=== PATIENT | female | born 1955 | race Caucasian/White ===

== ENCOUNTER 2023-12-01 12:43 | Inpatient (IN) | payer MEDICARE, MEDICAID ==
[~2023-12-01] VITALS: Ht 160 cm; Wt 52.0 kg
[2023-12-01] VITALS (9 sets, daily range): BP systolic 106; BP diastolic 62; PULSE 97–106; RESP 18–22; TEMP 97.8; O2SAT 92–97
[2023-12-01 13:23] LABS: Basophils # (auto) 0 10 ^3/uL (0-0.2); Basophils % (auto) 0.3 % (0.0-2.0); Eosinophils # (auto) 0 10 ^3/uL (0-0.8); Eosinophils % (auto) 0.5 % (0.0-7.0); Hematocrit 40.9 % (36.0-46.0); Hemoglobin 13.4 g/dL (12.2-16.2); Lymphocytes % (auto) 24.5 % (10.0-50.0); Mean Corpuscular Hemoglobin 29.8 pg (28.0-32.0); Mean Corpuscular Hgb Conc. 32.8 g/dL (32.0-36.0); Mean Corpuscular Volume 90.7 fL (80.0-100.0); Monocytes # (auto) 0.6 10 ^3/uL (0-1.3); Monocytes % (auto) 13.1 % (0.0-12.0); Neutrophils # (auto) 2.6 10 ^3/uL (1.6-8.6); Neutrophils % (auto) 61.6 % (37.0-80.0); Red Blood Cells 4.51 10^6/uL (4.0-5.20); Red Cell Distribution Width 14.9 % (11.8-14.3); White Blood Cell 4.2 10^3/uL (4.4-10.8)
[2023-12-01] MEDS: methylPREDNISolone SOD SUCC 125 MG/2 ML VL IV ONE (13:30)
[2023-12-01] MEDS: ALBUTEROL SULF 2.5 MG/0.5ML(0.5%) NEB SOLN HHN ONE (13:38)
[2023-12-01] MEDS: IPRATROPIUM BROM 0.5 MG/2.5ML INH SOL HHN ONE (13:38)
[2023-12-01 13:42] LABS: Base Excess 4.2 mmol/L (-2.0-2.0)
[2023-12-01 13:45] LABS: Alanine Aminotransferase 21 U/L (7-40); Albumin 4.8 g/dL (3.2-4.8); Alkaline Phosphatase 76 U/L (46-116); Anion Gap 4 (5-15); Aspartate Aminotransferase 27 U/L (13-40); BUN/Creatinine Ratio 16.9 (10.0-20.0); Bilirubin, Total 0.4 mg/dL (0.2-1.0); Blood Urea Nitrogen 10 mg/dL (9-23); Calcium 9.3 mg/dL (8.5-10.1); Carbon Dioxide 36 mmol/L (20-30); Chloride 99 mmol/L (98-107); Glucose 114 mg/dL (74-106); Sodium 139 mmol/L (136-145); Total Protein 7.1 g/dL (5.7-8.2)
[2023-12-01] MEDS: HYDROcodone-ACET 5/325MG TAB PO ONE (14:17)
[2023-12-01] MEDS ORDERED: ROPI1TAB78 PO (16:25)
[2023-12-01] MEDS ORDERED: LOSA-534 PO (16:25)
[2023-12-01] MEDS ORDERED: ATOR40TA52 PO (16:25)
[2023-12-01] MEDS ORDERED: ALBU108A5 INH (16:25)
[2023-12-01] MEDS ORDERED: OXYB5TAB14 PO (16:25)
[2023-12-01] MEDS ORDERED: FLUT1AER3 INH (16:25)
[2023-12-01] MEDS ORDERED: MOME1AER8 INH (16:25)
[2023-12-01] MEDS ORDERED: IBUP-1455 PO (16:25)
[2023-12-01] MEDS ORDERED: ACETAMINOPHEN 325 MG TAB PO PRN (16:30)
[2023-12-01] MEDS: SODIUM CHLORIDE 0.9% 1,000 ML IV SCH (16:52)
[2023-12-01] MEDS: cefTRIAXone 1GM/50ML D5W 50 ML IV ONE (17:49)
[2023-12-01] MEDS: ALBUTEROL SULF 2.5 MG/0.5ML(0.5%) NEB SOLN NEB SCH (18:23)
[2023-12-01] MEDS: IPRATROPIUM BROM 0.5 MG/2.5ML INH SOL NEB SCH (18:23)
[2023-12-01] MEDS: AZITHROMYCIN 500MG/ 250ML 250 ML IV ONE (19:39)
[2023-12-01 21:42] LABS: Urine Bacteria FEW /hpf (None Seen); Urine Blood Negative /uL (Negative); Urine Clarity Clear (Clear); Urine Color Colorless (Yellow); Urine Protein, UAD Negative (Negative); Urine Specific Gravity 1.004 (1.001-1.035); Urine Urobilinogen Normal (Negative); Urine WBC 4 /hpf (0 - 5)
[2023-12-01] MEDS: ROPINIROLE HYDROCHLORIDE 1 MG PO SCH (22:00)
[2023-12-01] MEDS: OXYBUTYNIN CHL 5 MG TAB PO SCH (22:58)
[2023-12-01] MEDS: methylPREDNISolone SOD SUCC 40 MG/ML VL IV SCH (22:58)
[2023-12-02] VITALS (18 sets, daily range): BP systolic 102–130; BP diastolic 57–75; PULSE 59–108; RESP 15–20; TEMP 97.2–98.1; O2SAT 93–100
[2023-12-02 06:16] LABS: Basophils # (auto) 0 10 ^3/uL (0-0.2); Basophils % (auto) 0.2 % (0.0-2.0); Eosinophils # (auto) 0 10 ^3/uL (0-0.8); Hematocrit 36.3 % (36.0-46.0); Hemoglobin 12.1 g/dL (12.2-16.2); Lymphocytes # (auto) 0.5 10 ^3/uL (0.4-5.4); Lymphocytes % (auto) 14.5 % (10.0-50.0); Mean Corpuscular Hemoglobin 30.2 pg (28.0-32.0); Mean Corpuscular Hgb Conc. 33.4 g/dL (32.0-36.0); Mean Corpuscular Volume 90.3 fL (80.0-100.0); Monocytes # (auto) 0.3 10 ^3/uL (0-1.3); Monocytes % (auto) 7.4 % (0.0-12.0); Neutrophils # (auto) 2.7 10 ^3/uL (1.6-8.6); Neutrophils % (auto) 77.9 % (37.0-80.0); Red Blood Cells 4.02 10^6/uL (4.0-5.20); Red Cell Distribution Width 14.4 % (11.8-14.3); White Blood Cell 3.5 10^3/uL (4.4-10.8)
[2023-12-02 06:32] LABS: Alanine Aminotransferase 11 U/L (7-40); Albumin 4.4 g/dL (3.2-4.8); Alkaline Phosphatase 64 U/L (46-116); Anion Gap 7 (5-15); Aspartate Aminotransferase 22 U/L (13-40); BUN/Creatinine Ratio 17.9 (10.0-20.0); Bilirubin, Total 0.3 mg/dL (0.2-1.0); Blood Urea Nitrogen 10 mg/dL (9-23); Calcium 9.3 mg/dL (8.5-10.1); Carbon Dioxide 31 mmol/L (20-30); Chloride 100 mmol/L (98-107); Glucose 102 mg/dL (74-106); Potassium 3.9 mmol/L (3.5-5.1); Sodium 138 mmol/L (136-145); Total Protein 6.9 g/dL (5.7-8.2)
[2023-12-02] MEDS: cefTRIAXone 1GM/50ML D5W 50 ML IV SCH (10:37)
[2023-12-02] MEDS: AZITHROMYCIN 500MG/ 250ML 250 ML IV SCH (10:38)
[2023-12-02] MEDS: ENOXAPARIN SOD 30 MG/0.3 ML SYRINGE SC SCH (10:40)
[2023-12-02] MEDS: LOSARTAN POTASSIUM 50 MG TAB PO SCH (10:40)
[2023-12-02] MEDS: IPRATROPIUM BROM 0.5 MG/2.5ML INH SOL NEB PRN (10:50)
[2023-12-02] MEDS: ALBUTEROL SULF 2.5 MG/0.5ML(0.5%) NEB SOLN NEB PRN (10:51)
[2023-12-02] MEDS ORDERED: OMEP-448 PO (11:24)
[2023-12-02] MEDS: IPRATROPIUM BROM 0.5 MG/2.5ML INH SOL NEB SCH (14:39)
[2023-12-02] MEDS: ALBUTEROL SULF 2.5 MG/0.5ML(0.5%) NEB SOLN NEB SCH (14:39)
[2023-12-02] MEDS: ATORVASTATIN 20 MG TAB PO SCH (21:32)
[2023-12-03] VITALS (16 sets, daily range): BP systolic 99–142; BP diastolic 54–98; PULSE 72–109; RESP 14–20; TEMP 97.3–98.3; O2SAT 94–99
[2023-12-03 06:41] LABS: Basophils # (auto) 0 10 ^3/uL (0-0.2); Basophils % (auto) 0.3 % (0.0-2.0); Eosinophils # (auto) 0 10 ^3/uL (0-0.8); Hematocrit 35.8 % (36.0-46.0); Hemoglobin 11.8 g/dL (12.2-16.2); Lymphocytes # (auto) 0.9 10 ^3/uL (0.4-5.4); Lymphocytes % (auto) 17.1 % (10.0-50.0); Mean Corpuscular Hemoglobin 29.8 pg (28.0-32.0); Mean Corpuscular Hgb Conc. 32.9 g/dL (32.0-36.0); Mean Corpuscular Volume 90.5 fL (80.0-100.0); Monocytes # (auto) 0.4 10 ^3/uL (0-1.3); Monocytes % (auto) 8.5 % (0.0-12.0); Neutrophils # (auto) 3.9 10 ^3/uL (1.6-8.6); Neutrophils % (auto) 74.1 % (37.0-80.0); Red Blood Cells 3.96 10^6/uL (4.0-5.20); Red Cell Distribution Width 15.3 % (11.8-14.3); White Blood Cell 5.2 10^3/uL (4.4-10.8)
[2023-12-03 06:54] LABS: Chloride 104 mmol/L (98-107); Potassium 4.4 mmol/L (3.5-5.1); Sodium 142 mmol/L (136-145)
[2023-12-03 06:55] LABS: Anion Gap 2 (5-15); Carbon Dioxide 36 mmol/L (20-30)
[2023-12-03 07:00] LABS: Blood Urea Nitrogen 11 mg/dL (9-23); Glucose 105 mg/dL (74-106)
[2023-12-03] MEDS ORDERED: IBUPROFEN 800 MG TAB PO PRN (09:45)
[2023-12-03] MEDS: POTASSIUM CHL 10 Meq TABLET PO ONE (10:04)
[2023-12-03] MEDS: FUROSEMIDE 20 MG/2 ML VIAL IV ONE (10:05)
[2023-12-03] MEDS: methylPREDNISolone SOD SUCC 40 MG/ML VL IV SCH (10:06)
[2023-12-03] MEDS: PANTOPRAZOLE 40 MG TAB PO SCH (10:07)
[2023-12-03] MEDS: AZITHROMYCIN 250 MG TAB PO SCH (10:07)
[2023-12-04] VITALS (11 sets, daily range): BP systolic 135–165; BP diastolic 73–90; PULSE 81–100; RESP 14–18; TEMP 97.5–98.9; O2SAT 95–99
[2023-12-04] MEDS: LABETALOL HCL 5 MG/ML 4ML SYRINGE IV ONE (04:54)
[2023-12-04] MEDS ORDERED: IPR002IS HHN (09:11)
[2023-12-04] MEDS ORDERED: AZIT500T PO (09:11)
[2023-12-04] MEDS ORDERED: PRED20TA2 PO (09:11)
[2023-12-04] MEDS ORDERED: ALBU1.258 IN (09:11)
[2023-12-04] MEDS: FUROSEMIDE 20 MG/2 ML VIAL IV ONE (11:09)
[2023-12-04] MEDS: POTASSIUM CHL 20 Meq TABLET PO ONE (11:09)
== END 2023-12-04 17:15 | disposition home health service (06) | DRG 194 ==
LOC: ER 12:43 → EDBD 12:43 → OVERFLOW 16:20 → CENTRAL 22:05
PROVIDERS: ADMIT Nurse Practitioner Family; ATTEND Internal Medicine
DX: I11.0 Hypertensive heart disease with heart failure (principal); J15.69 Pneumonia due to other Gram-negative bacteria; J96.11 Chronic respiratory failure with hypoxia; J44.0 Chronic obstructive pulmonary disease with (acute) lower respiratory infection; J15.9 Unspecified bacterial pneumonia; Z99.81 Dependence on supplemental oxygen; I50.31 Acute diastolic (congestive) heart failure; J44.1 Chronic obstructive pulmonary disease with (acute) exacerbation; E78.5 Hyperlipidemia, unspecified; M79.7 Fibromyalgia; N39.0 Urinary tract infection, site not specified
CPT/HCPCS: 36415; 36600; 71045; 80048; 80053; 81001; 82805; 83605; 83880; 84484; 85025; 87040; 93306; 94640; 94644; 96374; 97163; 99291; G0378; J3490